=== PATIENT | female | born 2005 | race Caucasian/White ===

== ENCOUNTER 2024-06-30 00:04 | Emergency (ER) | payer OTHER ==
[~2024-06-30] VITALS: Ht 165.1 cm; Wt 102.3 kg
[2024-06-30 00:07] VITALS: BP 150/94; PULSE 125; RESP 18; TEMP 100.3; O2SAT 99
[2024-06-30] MEDS ORDERED: DOXY-354 PO (00:59)
[2024-06-30] MEDS: CefTRIAXone SODIUM 1 GM/VIAL IM ONE (01:05)
[2024-06-30] MEDS: LIDOCAINE/PF 1% 2 ML VIAL IM ONE (01:05)
[2024-06-30 01:48] LABS: ALCOHOL, URINE DRUG SCREEN NEGATIVE (NEGATIVE); AMPHET/METH SCREEN,URINE NEGATIVE (NEGATIVE); BARBITURATE SCREEN, URINE NEGATIVE (NEGATIVE); BENZODIAZEPINES SCREEN,URINE NEGATIVE (NEGATIVE); CANNABINOID SCREEN,URINE NEGATIVE (NEGATIVE); COCAINE SCREEN,URINE NEGATIVE (NEGATIVE); METHADONE SCREEN, URINE NEGATIVE (NEGATIVE); OPIATE SCREEN,URINE NEGATIVE (NEGATIVE); PHENCYCLIDINE SCREEN,URINE NEGATIVE (NEGATIVE)
== END 2024-06-30 01:27 | disposition home or self-care (01) ==
LOC: EMS 00:04
DX: K13.0 Diseases of lips (principal); M79.7 Fibromyalgia; Z88.2 Allergy status to sulfonamides
CPT/HCPCS: 99284; 93005; 96372; 80307; J0696; J3490